=== PATIENT | male | born 1965 | race Caucasian/White ===

== ENCOUNTER → 2017-05-06 | Day surgery (SDC) | payer BC ==
[2016-05-06 21:12] VITALS: BP 158/95
[~2017-05-06] MED LIST: MIRALAX 255 GM255 GM PO; ZOFRAN ODT4 MG PO
== END ==
LOC: MSO 15:08
DX: K92.1 Melena (principal); K21.0 Gastro-esophageal reflux disease with esophagitis; R10.32 Left lower quadrant pain
CPT/HCPCS: 00740; A4649; J3010; J7120